=== PATIENT | male | born 1955 | race Caucasian/White ===

== ENCOUNTER 2021-05-05 05:56 | Day surgery (SDC) | payer BC ==
[2021-05-04 13:37] VITALS: BMI 28.5
[2021-05-05] MEDS ORDERED: Diazepam 5 MG TAB PO SCH (06:30)
[2021-05-05] MEDS ORDERED: Sodium Chloride 0.9% 1,000 ML IV SCH (06:30)
[2021-05-05] MEDS ORDERED: Heparin 10,000 UNITS/ 10 ML VIAL ONE (06:34)
[2021-05-05] MEDS ORDERED: Verapamil 5 MG/2 ML VIAL ONE (06:34)
[2021-05-05] MEDS ORDERED: Adenosine 6 MG/2 ML VIAL ONE (06:34)
[2021-05-05] MEDS ORDERED: Lidocaine 1% (PF) 30 ML VIAL ONE (06:35)
[2021-05-05] MEDS ORDERED: Nitroglycerin 100MG/250ML BOT 250 ML ONE (06:35)
[2021-05-05] MEDS ORDERED: Diazepam 5 MG TAB ONE (06:49)
[2021-05-05] MEDS ORDERED: Midazolam HCl 2 mg/2 ml Vial ONE (07:12)
[2021-05-05] MEDS ORDERED: Fentanyl 100 MCG/2 ML VIAL ONE (07:12)
[2021-05-05] MEDS ORDERED: Iopamidol 370 76% 50 ML VIAL FS ONE (08:56)
== END 2021-05-05 11:36 | disposition home or self-care (01) ==
LOC: CCL 05:56
PROVIDERS: ATTEND Internal Medicine Cardiovascular Disease
PROC: 4A023N7 Measurement of Cardiac Sampling and Pressure, Left Heart, Percutaneous Approach (ICD-10-PCS; principal; 2021-05-05)
PROC: B2111ZZ Fluoroscopy of Multiple Coronary Arteries using Low Osmolar Contrast (ICD-10-PCS; principal; 2021-05-05)
DX: I25.10 Atherosclerotic heart disease of native coronary artery without angina pectoris (principal); I10 Essential (primary) hypertension; E78.5 Hyperlipidemia, unspecified; Z79.02 Long term (current) use of antithrombotics/antiplatelets; Z79.51 Long term (current) use of inhaled steroids; Z79.82 Long term (current) use of aspirin; Z79.899 Other long term (current) drug therapy; Z95.1 Presence of aortocoronary bypass graft; Z95.5 Presence of coronary angioplasty implant and graft
CPT/HCPCS: 93458; 99152; J0153; J1644; J2001; J2250; J3010; Q9967

== ENCOUNTER 2021-05-07 09:15 | Inpatient (IN) | payer BC ==
[2021-05-07 11:08] LABS: Hemoglobin 12.5 g/dL (13.5-17.5); Mean Corpuscular HGB CONC 31.6 g/dL (32.0-36.0); Mean Corpuscular Hemoglobin 28.3 pg (27.0-33.0); Mean Corpuscular Volume 89.6 fl (81.2-95.1); Mean Platelet Volume 9.8 fl (7.4-10.4); Platelet Count 254 10x3/uL (150-450); RBC Distribution Width 13.2 % (11.5-14.5); Red Blood Cell (RBC) Count 4.41 10x6/uL (4.32-5.72); White Blood Cell (WBC) Count 9.3 10x3/uL (3.5-10.5)
[2021-05-07 12:04] LABS: Anion Gap 17 mmol/L (10-20); BUN (Urea Nitrogen) 13 mg/dL (8.4-25.7); Calc. Creatinine Clearance 0 mL/min (70-130); Calcium 10.4 mg/dL (7.8-10.44); Carbon Dioxide 23 mmol/L (23-31); Chloride 107 mmol/L (98-107); Glucose 117 mg/dL (80-115); Sodium 142 mmol/L (136-145)
[2021-05-12] MEDS ORDERED: Albumin 5% 500 ML ONE (06:16)
[2021-05-12] MEDS ORDERED: Midazolam HCl 5 mg/5 ml Vial ONE (06:43)
[2021-05-12] MEDS ORDERED: Fentanyl 250 MCG/5 ML VIAL ONE (06:43)
[2021-05-12] MEDS ORDERED: Dexmedetomidine 200 MCG/2 ML VIAL ONE (06:43)
[2021-05-12] MEDS ORDERED: Sodium Chloride 0.9% 20 ML ONE (06:53)
[2021-05-12] MEDS ORDERED: Heparin 10,000 UNITS/1 ML VIAL 30,000 UNITS in Sodium Chloride 0.9% 1,000 ML FS SCH (07:00)
[2021-05-12] MEDS ORDERED: Midazolam HCl 2 mg/2 ml Vial ONE (07:08)
[2021-05-12] MEDS ORDERED: Ondansetron PF 4 MG/2 ML Vial ONE (07:36)
[2021-05-12] MEDS ORDERED: Nitroglycerin 50 MG/250 ML BOT ONE (07:36)
[2021-05-12] MEDS ORDERED: Magnesium Sulfate 1 GM/2 ML VIAL ONE (07:36)
[2021-05-12] MEDS ORDERED: Lidocaine 2% PF 100 mg/5 ml Syringe ONE (07:36)
[2021-05-12] MEDS ORDERED: Calcium Chloride 1 GM/10 ML Abboject SYRINGE ONE (07:36)
[2021-05-12] MEDS ORDERED: Papaverine 60 MG/2 ML VIAL ONE (07:36)
[2021-05-12] MEDS ORDERED: Dexamethasone 20 MG/5 ML VIAL ONE (07:36)
[2021-05-12] MEDS ORDERED: Heparin 5,000 UNITS/ML VIAL ONE (07:36)
[2021-05-12] MEDS ORDERED: Sodium Bicarb 50 MEQ/50 ML Abboject 8.4% SYRINGE ONE (07:36)
[2021-05-12] MEDS ORDERED: Heparin 30,000 units/30 ml VIAL ONE (07:36)
[2021-05-12] MEDS ORDERED: Aminocaproic Acid 5 GM/20 ML VIAL ONE (07:36)
[2021-05-12] MEDS ORDERED: Glycopyrrolate 0.2 MG/ML 5 ML SYRINGE ONE (07:36)
[2021-05-12] MEDS ORDERED: Mannitol 12.5 GM/50 ML ONE (07:36)
[2021-05-12] MEDS ORDERED: Vecuronium 10 MG VIAL ONE (07:36)
[2021-05-12] MEDS ORDERED: Cardioplegic Soln 1,000 ML BAG ONE (07:36)
[2021-05-12] MEDS ORDERED: Thrombin 5000 UNITS/5 ML VIAL ONE (07:36)
[2021-05-12] MEDS ORDERED: Lidocaine 1% PF 5 ML VIAL ONE (07:36)
[2021-05-12] MEDS ORDERED: Norepinephrine 4 MG/4 ML VIAL ONE (07:36)
[2021-05-12] MEDS ORDERED: Potassium Chloride 60 MEQ/30 ML VIAL ONE (07:36)
[2021-05-12] MEDS ORDERED: PROPOFOL 200 MG/20 ML VIAL ONE (07:36)
[2021-05-12] MEDS ORDERED: PHENYLEPHRINE-NS 100 MCG/ML 10 ML SYRINGE ONE (08:14)
[2021-05-12] MEDS ORDERED: Insulin Regular 300 UNITS/3 ML VIAL ONE (08:59)
[2021-05-12] MEDS ORDERED: Bisacodyl 10 MG SUPP PR PRN (10:51)
[2021-05-12] MEDS ORDERED: Fentanyl 100 MCG/2 ML VIAL SLOW IVP PRN (10:51)
[2021-05-12] MEDS ORDERED: Potassium Chloride 20 MEQ/100 ML PREMIX BAG IVPB PRN (10:51)
[2021-05-12] MEDS ORDERED: Post-Op Insulin Drip Protocol IVPB ONE (10:51)
[2021-05-12] MEDS ORDERED: DOPamine 400 MG/D5W 250 ML 250 ML IVPB PRN (10:51)
[2021-05-12] MEDS ORDERED: niCARdipine 25 MG in Sodium Chloride 0.9% 250 ML 250 ML IVPB PRN (10:51)
[2021-05-12] MEDS ORDERED: ALPRAZolam 0.5 MG TAB PO PRN (10:51)
[2021-05-12] MEDS ORDERED: hydrALAZINE 20 MG/ML VIAL SLOW IVP PRN (10:51)
[2021-05-12] MEDS ORDERED: Mag-Al 1200 mg/1200 mg/30 ML UDCUP PO PRN (10:51)
[2021-05-12] MEDS ORDERED: Promethazine HCl 25 MG/ML VIAL IM PRN (10:51)
[2021-05-12] MEDS ORDERED: Nitroglycerin 50 MG/250 ML BOT 250 ML IVPB PRN (10:51)
[2021-05-12] MEDS ORDERED: Hetastarch 6% 500 ML 500 ML IVPB PRN (10:51)
[2021-05-12] MEDS ORDERED: Morphine 2 MG/ML VIAL SLOW IVP PRN (10:51)
[2021-05-12] MEDS ORDERED: Norepinephrine 8 MG/0.9% NS 250 ML IVPB PRN (10:51)
[2021-05-12] MEDS ORDERED: HYDROcodone/Acetaminophen 5/325 mg Tablet PO PRN ×2 (10:51)
[2021-05-12] MEDS ORDERED: Guaifenesin DM 100-10/5 ML UDCUP PO PRN (10:51)
[2021-05-12] MEDS ORDERED: Acetaminophen 325 MG TAB PO PRN (10:51)
[2021-05-12] MEDS ORDERED: Bisacodyl 5 MG TAB PO PRN (10:51)
[2021-05-12] MEDS ORDERED: Ondansetron PF 4 MG/2 ML Vial IVP PRN (10:51)
[2021-05-12 11:40] LABS: #Eosinphils 0.2 thou/uL (0.0-0.7); #Lymphocytes 1.5 thou/uL (1.20-3.40); #Monocytes 0.4 thou/uL (0.11-0.59); #Neutrophils 5.2 thou/uL (1.40-6.50); %Basophils 0.2 % (0.0-1.0); %Eosinophils 2.2 % (0.0-10.0); %Lymphocytes 21.1 % (21.0-51.0); %Monocytes 5.7 % (0.0-10.0); %Neutrophils 70.7 % (42.0-75.0); Hemoglobin 9.3 g/dL (14.0-18.0); Mean Corpuscular HGB CONC 32.6 g/dL (32.0-36.0); Mean Corpuscular Hemoglobin 29.3 pg (27.0-31.0); Mean Corpuscular Volume 89.8 fL (78.0-98.0); Mean Platelet Volume 7.2 fL (7.4-10.4); Platelet Count 149 thou/uL (130-400); RBC Distribution Width 12.1 % (11.5-14.5); Red Blood Cell (RBC) Count 3.16 mill/uL (4.70-6.10); White Blood Cell (WBC) Count 7.3 thou/uL (4.8-10.8)
[2021-05-12 11:47] LABS: INR-International Normal Ratio 1.4; PTT 32.5 sec (22.9-36.1); Prothrombin Time 17.5 sec (12.0-14.7)
[2021-05-12 12:00] LABS: Anion Gap 7 mmol/L (10-20); BUN (Urea Nitrogen) 12 mg/dL (8.4-25.7); Calc. Creatinine Clearance 103 mL/min (70-130); Calcium 7.2 mg/dL (7.8-10.44); Carbon Dioxide 22 mmol/L (23-31); Chloride 116 mmol/L (98-107); Glucose 127 mg/dL (80-115); Sodium 141 mmol/L (136-145)
[2021-05-12] MEDS: Ketorolac Tromethamine 30 MG/ML VIAL IVP SCH ×2 (12:12→17:20)
[2021-05-12] MEDS ORDERED: HUMULIN R 100 UNITS in Sodium Chloride 0.9% 100 ML IVPB SCH (12:15)
[2021-05-12] MEDS ORDERED: Dextrose 5% in Water 1,000 ML IV PRN (12:15)
[2021-05-12] MEDS ORDERED: Lantus 1000 UNITS/10 ML VIAL SC PRN (12:15)
[2021-05-12] MEDS ORDERED: Dextrose 50% Abboject 50 ML SYRINGE SLOW IVP PRN (12:15)
[2021-05-12] MEDS ORDERED: Insulin Regular 300 UNITS/3 ML VIAL SC PRN (12:15)
[2021-05-12] MEDS: Lactated Ringer's 1,000 ML IV SCH ×2 (12:17→19:37)
[2021-05-12] MEDS: CEFAZOLIN 2 GM in Premix Bag 1 BAG IVPB SCH (16:05)
[2021-05-12 17:15] LABS: Hemoglobin 10.2 g/dL (14.0-18.0)
[2021-05-12 17:43] LABS: Potassium 4.1 mmol/L (3.5-5.1)
[2021-05-12] MEDS: Fentanyl 100 MCG/2 ML VIAL SLOW IVP PRN ×2 (18:11→21:02)
[2021-05-12] MEDS ORDERED: Famotidine/PF 20 mg/2ml Vial SLOW IVP SCH (21:00)
[2021-05-13] MEDS: Ketorolac Tromethamine 30 MG/ML VIAL IVP SCH ×5 (00:13→23:59)
[2021-05-13] MEDS: CEFAZOLIN 2 GM in Premix Bag 1 BAG IVPB SCH ×2 (00:24→08:21)
[2021-05-13 04:14] VITALS: BMI 29.3
[2021-05-13 04:25] LABS: #Basophils 0.1 thou/uL (0.0-0.2); #Lymphocytes 1.4 thou/uL (1.20-3.40); #Neutrophils 9.7 thou/uL (1.40-6.50); %Basophils 0.5 % (0.0-1.0); %Eosinophils 0.1 % (0.0-10.0); %Lymphocytes 11.3 % (21.0-51.0); %Monocytes 7.8 % (0.0-10.0); %Neutrophils 80.2 % (42.0-75.0); Hemoglobin 9.9 g/dL (14.0-18.0); Mean Corpuscular HGB CONC 33.2 g/dL (32.0-36.0); Mean Corpuscular Hemoglobin 29.8 pg (27.0-31.0); Mean Corpuscular Volume 89.8 fL (78.0-98.0); Mean Platelet Volume 7.8 fL (7.4-10.4); Platelet Count 197 thou/uL (130-400); RBC Distribution Width 12.3 % (11.5-14.5); White Blood Cell (WBC) Count 12.1 thou/uL (4.8-10.8)
[2021-05-13 04:46] LABS: Anion Gap 11 mmol/L (10-20); BUN (Urea Nitrogen) 12 mg/dL (8.4-25.7); Calc. Creatinine Clearance 100 mL/min (70-130); Calcium 7.9 mg/dL (7.8-10.44); Carbon Dioxide 20 mmol/L (23-31); Chloride 113 mmol/L (98-107); Glucose 119 mg/dL (80-115); Potassium 3.9 mmol/L (3.5-5.1); Sodium 140 mmol/L (136-145)
[2021-05-13] MEDS ORDERED: Nitroglycerin 0.4 MG TAB (25 Tab Bottle) SL PRN (07:46)
[2021-05-13] MEDS: Famotidine 20 MG TAB PO SCH ×2 (08:21→21:32)
[2021-05-13] MEDS: Polyethylene Glycol 3350 17 GM Packet PO SCH (08:21)
[2021-05-13] MEDS: Loratadine 10 MG TAB PO SCH (08:21)
[2021-05-13] MEDS: Aspirin 325 MG TAB PO SCH (08:23)
[2021-05-13] MEDS ORDERED: Atorvastatin Calcium 40 MG TAB PO SCH (09:00)
[2021-05-13 11:51] LABS: Actual Bicarbonate (HCO3a) 20.4 mEq/L (22-28); Analyzer IN Cardio OR; Base Excess (BEa) -4.9 mEq/L (-2.0 to +3.0); Calcium, Ionized (arterial) 1.09 mmol/L (1.12-1.30); Carboxyhemoglobin (COHb) 0.3 gm% (0.0-3.0); Hemoglobin (Hb) 10.7 g/dL (14.0-18.0); O2 Tension (PaO2), arterial 297.7 mmHg (> 80.0); Potassium - ABG Lab 3.86 mmol/L (3.70-5.30); pH, Arterial 7.34 (7.35-7.45)
[2021-05-13 11:51] LABS: Actual Bicarbonate (HCO3a) 21.8 mEq/L (22-28); Analyzer IN Cardio OR; Base Excess (BEa) -2.2 mEq/L (-2.0 to +3.0); CO2 Tension 34.6 mmHg (35.0-45.0); Calcium, Ionized (arterial) 1.13 mmol/L (1.12-1.30); Carboxyhemoglobin (COHb) 0.5 gm% (0.0-3.0); Hemoglobin (Hb) 11.5 g/dL (14.0-18.0); O2 Tension (PaO2), arterial 271.2 mmHg (> 80.0); Potassium - ABG Lab 3.75 mmol/L (3.70-5.30); pH, Arterial 7.42 (7.35-7.45)
[2021-05-13 11:52] LABS: Actual Bicarbonate (HCO3a) 21.8 mEq/L (22-28); Analyzer IN Cardio OR; Base Excess (BEa) -3.3 mEq/L (-2.0 to +3.0); CO2 Tension 38.9 mmHg (35.0-45.0); Carboxyhemoglobin (COHb) 0.8 gm% (0.0-3.0); Hemoglobin (Hb) 7.4 g/dL (14.0-18.0); O2 Tension (PaO2), arterial 111.5 mmHg (> 80.0); Potassium - ABG Lab 3.88 mmol/L (3.70-5.30); pH, Arterial 7.37 (7.35-7.45)
[2021-05-13 11:52] LABS: Actual Bicarbonate (HCO3a) 25.4 mEq/L (22-28); Analyzer IN Cardio OR; CO2 Tension 34.5 mmHg (35.0-45.0); Calcium, Ionized (arterial) 0.83 mmol/L (1.12-1.30); Carboxyhemoglobin (COHb) 0.1 gm% (0.0-3.0); Hemoglobin (Hb) 8.4 g/dL (14.0-18.0); O2 Tension (PaO2), arterial 415.1 mmHg (> 80.0); Potassium - ABG Lab 3.89 mmol/L (3.70-5.30); pH, Arterial 7.49 (7.35-7.45)
[2021-05-13 11:52] LABS: Actual Bicarbonate (HCO3a) 21.5 mEq/L (22-28); Analyzer IN Cardio OR; Base Excess (BEa) -2.8 mEq/L (-2.0 to +3.0); CO2 Tension 34.7 mmHg (35.0-45.0); Calcium, Ionized (arterial) 0.98 mmol/L (1.12-1.30); Carboxyhemoglobin (COHb) 0.7 gm% (0.0-3.0); Hemoglobin (Hb) 7.6 g/dL (14.0-18.0); O2 Tension (PaO2), arterial 410.4 mmHg (> 80.0); Potassium - ABG Lab 3.98 mmol/L (3.70-5.30); pH, Arterial 7.41 (7.35-7.45)
[2021-05-13 11:53] LABS: Actual Bicarbonate (HCO3a) 21.3 mEq/L (22-28); Analyzer IN Cardio OR; Base Excess (BEa) -5.9 mEq/L (-2.0 to +3.0); CO2 Tension 50.2 mmHg (35.0-45.0); Calcium, Ionized (arterial) 1.13 mmol/L (1.12-1.30); Carboxyhemoglobin (COHb) 0.1 gm% (0.0-3.0); Hemoglobin (Hb) 9.8 g/dL (14.0-18.0); O2 Tension (PaO2), arterial 154.4 mmHg (> 80.0)
[2021-05-13 11:53] LABS: Puncture Site Arterial Line
[2021-05-13 11:54] LABS: Puncture Site Arterial Line
[2021-05-13 11:54] LABS: Puncture Site Arterial Line
[2021-05-13 11:55] LABS: Puncture Site Arterial Line
[2021-05-13 11:55] LABS: Puncture Site Arterial Line
[2021-05-13 11:56] LABS: Puncture Site Arterial Line; pH, Arterial 7.25 (7.35-7.45)
[2021-05-13] MEDS: Atorvastatin Calcium 40 MG TAB PO SCH (21:32)
[2021-05-14] MEDS: Ketorolac Tromethamine 30 MG/ML VIAL IVP SCH ×3 (05:48→18:01)
[2021-05-14] MEDS ORDERED: Clopidogrel Bisulfate 75 MG TAB PO SCH (09:00)
[2021-05-14] MEDS: Furosemide 40 MG TAB PO SCH (09:05)
[2021-05-14] MEDS: Aspirin 325 MG TAB PO SCH (09:05)
[2021-05-14] MEDS: Polyethylene Glycol 3350 17 GM Packet PO SCH (09:05)
[2021-05-14] MEDS: Carvedilol 3.125 MG TAB PO SCH ×2 (09:05→18:00)
[2021-05-14] MEDS: Famotidine 20 MG TAB PO SCH ×2 (09:05→20:26)
[2021-05-14] MEDS: Loratadine 10 MG TAB PO SCH (09:05)
[2021-05-14] MEDS: Atorvastatin Calcium 40 MG TAB PO SCH (20:26)
[2021-05-15] MEDS: Ketorolac Tromethamine 30 MG/ML VIAL IVP SCH ×3 (00:25→12:10)
[2021-05-15] MEDS: Aspirin 325 MG TAB PO SCH (09:08)
[2021-05-15] MEDS: Furosemide 40 MG TAB PO SCH (09:08)
[2021-05-15] MEDS: Polyethylene Glycol 3350 17 GM Packet PO SCH (09:08)
[2021-05-15] MEDS: Loratadine 10 MG TAB PO SCH (09:08)
[2021-05-15] MEDS: Carvedilol 3.125 MG TAB PO SCH ×2 (09:08→16:37)
[2021-05-15] MEDS: Famotidine 20 MG TAB PO SCH ×2 (09:08→20:24)
[2021-05-15] MEDS: Atorvastatin Calcium 40 MG TAB PO SCH (20:24)
[2021-05-16] MEDS ORDERED: Losartan 25 MG TAB PO SCH (09:00)
[2021-05-16] MEDS: Furosemide 40 MG TAB PO SCH (09:03)
[2021-05-16] MEDS: Loratadine 10 MG TAB PO SCH (09:03)
[2021-05-16] MEDS: Aspirin 325 MG TAB PO SCH (09:03)
[2021-05-16] MEDS: Famotidine 20 MG TAB PO SCH (09:03)
[2021-05-16] MEDS: Polyethylene Glycol 3350 17 GM Packet PO SCH (09:03)
[2021-05-16] MEDS: Carvedilol 3.125 MG TAB PO SCH (09:04)
[2021-05-16 12:03] VITALS: BP 116/65; TEMP 98.2
== END 2021-05-16 12:20 | disposition home or self-care (01) | DRG 235 ==
LOC: SURG A 05-12 05:57 → EDSTATUS 05-12 09:15 → CCU 05-12 10:26 → 2NO 05-13 20:30
PROVIDERS: ADMIT Thoracic Surgery (Cardiothoracic Vascular Surgery); ATTEND Thoracic Surgery (Cardiothoracic Vascular Surgery)
PROC: 02100Z9 Bypass Coronary Artery, One Artery from Left Internal Mammary, Open Approach (ICD-10-PCS; principal; 2021-05-12)
PROC: 021109W Bypass Coronary Artery, Two Arteries from Aorta with Autologous Venous Tissue, Open Approach (ICD-10-PCS; 2021-05-12)
PROC: 06BQ4ZZ Excision of Left Saphenous Vein, Percutaneous Endoscopic Approach (ICD-10-PCS; 2021-05-12)
PROC: 5A1221Z Performance of Cardiac Output, Continuous (ICD-10-PCS; 2021-05-12)
DX: I25.10 Atherosclerotic heart disease of native coronary artery without angina pectoris (principal); J96.01 Acute respiratory failure with hypoxia; J96.02 Acute respiratory failure with hypercapnia; J98.11 Atelectasis; D62 Acute posthemorrhagic anemia; E78.5 Hyperlipidemia, unspecified; K21.9 Gastro-esophageal reflux disease without esophagitis; G47.30 Sleep apnea, unspecified; G25.81 Restless legs syndrome; I10 Essential (primary) hypertension; Z95.5 Presence of coronary angioplasty implant and graft; I25.2 Old myocardial infarction; Z79.82 Long term (current) use of aspirin; Z79.899 Other long term (current) drug therapy; Z98.890 Other specified postprocedural states
CPT/HCPCS: 36416; 71045; 80048; 82805; 82947; 85025; 85027; 85610; 85730; 86850; 86900; 86901; 86921; 93005; 93010; 93798; 94150; 97139; J0690; J1100; J1642; J1644; J1815; J1885; J2001; J2150; J2250; J2405; J2440; J2704; J3010; J3370; J3475; J3480; P9045; S0017; S0028